=== PATIENT | female | born 1995 | race Caucasian/White ===

== ENCOUNTER 2024-11-22 19:59 | Emergency (ER) | payer BC, SELFPAY ==
[2024-11-22 20:07] VITALS: BP 105/85; PULSE 63; TEMP 36.7; O2SAT 99; BMI 24.8
--- NOTE | 2024-11-22 20:11 | ED.UPPEXIN1 ---
Documented by User: [email or web address] Pink 11/22/24 21:58 HPI HPI - Extremity Injury (Upper) General Chief Complaint: Extremity Injury, Upper Stated Complaint: RIGHT UPPER EXTREMITY INJURY Time Seen by Provider: 11/22/24 20:01 Source: patient Mode of arrival: walk-in Limitations: no limitations History of Present Illness HPI narrative: Patient is a 28-year-old female who presents to the emergency department for continued pain over the ulnar aspect of the right wrist and hand. She states several hours ago at home she smacked her hand against a door, about 2 hours later she noted pain radiating from the area that she hit up her forearm. She states her hand and wrist feel heavy. She is currently breast-feeding. She has no concern for . No medications taken prior to arrival. Related Data Previous Rx's ?Medication ?Instructions ?Recorded ibuprofen 600 mg tablet 600 mg PO QID PRN pain #20 tabs 11/22/24 Allergies Allergy/AdvReac Type Severity Reaction Status Date / Time No Known Drug Allergies Allergy Verified 11/22/24 20:07 Review of Systems ROS Constitutional Denies: fever or chills Ears, nose, mouth, and throat Denies: throat pain or nasal congestion Cardiovascular Denies: chest pain Respiratory Denies: shortness of breath or cough Gastrointestinal Denies: nausea or vomiting Musculoskeletal Reports: extremity pain; Denies: back pain or neck pain Integumentary/Breast Denies: rash Neurological Denies: numbness in extremities or weakness in extremities Hematologic/Lymphatic Denies: easy bruising or easy bleeding PFSH PFSH Social History Little interest or pleasure in doing things: not at all Feeling down, depressed, or hopeless: not at all Exam Narrative Exam Narrative: Gen.: Awake, alert, in no distress Head: Normocephalic, atraumatic ENT: Moist mucous membranes Respiratory: No respiratory distress Extremities: No obvious deformity, no significant swelling noted to the right hand or wrist. Minimal tenderness over the ulnar prominence of the right wrist. 2+ right radial pulse. 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 Psych: Normal mood and affect Neuro: No focal neuro deficit Skin: Warm, dry, intact Constitutional Vital Signs, click to edit/add: Last Vital Signs Temp 98.0 F 11/22/24 20:07 Pulse 63 11/22/24 20:07 Resp 18 11/22/24 20:07 BP 105/85 11/22/24 20:07 Pulse Ox 99 11/22/24 20:07 O2 Del Method Room Air 11/22/24 20:07 Course Vital Signs Vital signs: Vital Signs Temperature 98.0 F 11/22/24 20:07 Pulse Rate 63 11/22/24 20:07 Respiratory Rate 18 11/22/24 20:07 Blood Pressure 105/85 11/22/24 20:07 Pulse Oximetry 99 11/22/24 20:07 Oxygen Delivery Method Room Air 11/22/24 20:07 Temperature 98.0 F 11/22/24 20:07 Pulse Rate 63 11/22/24 20:07 Respiratory Rate 18 11/22/24 20:07 Blood Pressure 105/85 11/22/24 20:07 Pulse Oximetry 99 11/22/24 20:07 Oxygen Delivery Method Room Air 11/22/24 20:07 MDM - Extremity Injury (Upper) MDM Narrative Medical decision making narrative: Patient with a benign exam, no focal neurodeficits. X-rays obtained with no obvious fracture or dislocation. Patient placed in an Johnny wrap, she remains neurovascularly intact. Rest, ice, elevate. NSAIDs given for home as she is breast-feeding. She is prescribed ibuprofen 600 mg. We did not receive a radiologist read of the patient's right wrist x-rays, these x-rays were reviewed by myself and Dr. Lopez. No obvious fracture noted. Patient will be contacted for any discrepancies SUPERVISED APC VISIT, PHYSICIAN ATTESTATION: Based on the medical record the care appears appropriate. ? Medical Records Attestation: I reviewed the patient's medical records. Discharge Plan Discharge Chief Complaint: Extremity Injury, Upper Clinical Impression: Contusion of right wrist Patient Disposition: Home, Self-Care Time of Disposition Decision: 21:57 Condition: Good Prescriptions / Home Meds: New ibuprofen 600 mg tablet 600 mg PO QID PRN (Reason: pain) Qty: 20 0RF Print Language: Vietnamese Instructions: Contusion in Adults (ED) Referrals: Isidra SHAIKH [Primary Care Provider, Family Practice] - 1 week Discharge Date/Time: 11/22/24 22:05 Documented by User: Lupis Lopez MD 11/23/24 01:26 HPI HPI - Extremity Injury (Upper) General Chief Complaint: Extremity Injury, Upper Stated Complaint: RIGHT UPPER EXTREMITY INJURY Time Seen by Provider: 11/22/24 20:01 Related Data Previous Rx's ?Medication ?Instructions ?Recorded ibuprofen 600 mg tablet 600 mg PO QID PRN pain #20 tabs 11/22/24 Allergies Allergy/AdvReac Type Severity Reaction Status Date / Time No Known Drug Allergies Allergy Verified 11/22/24 20:07 PFSH PFS Social History Little interest or pleasure in doing things: not at all Feeling down, depressed, or hopeless: not at all Exam Constitutional Vital Signs, click to edit/add: Last Vital Signs Temp 98.0 F 11/22/24 20:07 Pulse 63 11/22/24 20:07 Resp 18 11/22/24 20:07 BP 105/85 11/22/24 20:07 Pulse Ox 99 11/22/24 20:07 O2 Del Method Room Air 11/22/24 20:07 Course Vital Signs Vital signs: Vital Signs Temperature 98.0 F 11/22/24 20:07 Pulse Rate 63 11/22/24 20:07 Respiratory Rate 18 11/22/24 20:07 Blood Pressure 105/85 11/22/24 20:07 Pulse Oximetry 99 11/22/24 20:07 Oxygen Delivery Method Room Air 11/22/24 20:07 Temperature 98.0 F 11/22/24 20:07 Pulse Rate 63 11/22/24 20:07 Respiratory Rate 18 11/22/24 20:07 Blood Pressure 105/85 11/22/24 20:07 Pulse Oximetry 99 11/22/24 20:07 Oxygen Delivery Method Room Air 11/22/24 20:07 MDM - Extremity Injury (Upper) MDM Narrative Medical decision making narrative: Patient with a benign exam, no focal neurodeficits. X-rays obtained with no obvious fracture or dislocation. Patient placed in an Johnny wrap, she remains neurovascularly intact. Rest, ice, elevate. NSAIDs given for home as she is breast-feeding. She is prescribed ibuprofen 600 mg. We did not receive a radiologist read of the patient's right wrist x-rays, these x-rays were reviewed by myself and Dr. Lopez. No obvious fracture noted. Patient will be contacted for any discrepancies X-ray was read as negative by radiology- SUPERVISED APC VISIT, PHYSICIAN ATTESTATION: Based on the medical record the care appears appropriate. ? Discharge Plan Discharge Chief Complaint: Extremity Injury, Upper Clinical Impression: Contusion of right wrist Patient Disposition: Home, Self-Care Time of Disposition Decision: 21:57 Condition: Good Prescriptions / Home Meds: New ibuprofen 600 mg tablet 600 mg PO QID PRN (Reason: pain) Qty: 20 0RF Print Language: Vietnamese Instructions: Contusion in Adults (ED) Referrals: Isidra SHAIKH [Primary Care Provider, Family Practice] - 1 week Discharge Date/Time: 11/22/24 22:05
--- NOTE | 2024-11-22 21:07 | PC.NURSE ---
this patient is sitting upright on the bed awake and alert, i informed this patient that we are still waiting on x-ray results to come back. this patient voices no concerns and shows no signs of distress
--- NOTE | 2024-11-22 21:54 | PC.NURSE ---
this patient informed that we are still waiting on x-ray results to come back. this patient voices no concerns and shows no signs of distress
--- NOTE | 2024-11-22 22:03 | PC.NURSE ---
i gave this patient verbal and paper discharge orders and 1 e-scribe this patient voices yes to understanding these. this patient voices no concerns and shows no signs of distress
== END 2024-11-22 22:05 | disposition home or self-care (01) ==
PROVIDERS: Emergency Provider Emergency Medicine; PCP Family Medicine
DX: S60.211A Contusion of right wrist, initial encounter (principal); W22.8XXA Striking against or struck by other objects, initial encounter
CPT/HCPCS: 73110; 99283